=== PATIENT | female | born 1960 | race Caucasian/White ===

== ENCOUNTER 2017-07-20 10:05 | Day surgery (SDC) | payer BC ==
[2017-07-20] MEDS ORDERED: FENTAnyl 50 MCG/ML VIAL (12:37)
[2017-07-20] MEDS ORDERED: MIDAZOLAM 1 MG/ML 2 ML INJ ×3 (12:37)
== END 2017-07-20 16:43 | disposition home or self-care (01) ==
LOC: GIL 10:05
DX: K29.70 Gastritis, unspecified, without bleeding (principal); K64.8 Other hemorrhoids; K21.9 Gastro-esophageal reflux disease without esophagitis; K57.30 Diverticulosis of large intestine without perforation or abscess without bleeding
CPT/HCPCS: 43239; 82962